=== PATIENT | male | born 1960 | race Caucasian/White ===

== ENCOUNTER 2025-04-20 11:30 | Day surgery (SDC) | payer OTHER ==
[2025-04-14 10:24] VITALS: BP 125/83
[~2025-04-20] VITALS: Ht 165.1 cm; Wt 62.6 kg
[2025-04-20] MEDS ORDERED: CIPROFLOXACIN IN 5 % DEXTROSE 400 MG/200 ML PIGGYBAG IV ONE ×2 (12:51→16:30)
[2025-04-20] MEDS ORDERED: BUPIVACAINE HCL/MPF 0.5% 30ML VIAL ONE (14:31)
[2025-04-20] MEDS ORDERED: MIRALAX17 GM PO (18:02)
[2025-04-20] MEDS ORDERED: KETO10TA2 PO (18:02)
[2025-04-20] MEDS ORDERED: TYLENOL ARTHRI650 MG PO (18:02)
[2025-04-20] MEDS ORDERED: TRAMADOL HCL50 MG PO (18:02)
== END 2025-04-20 21:50 | disposition home or self-care (01) ==
LOC: CIR.AMB 11:30
PROVIDERS: ATTEND Surgery
DX: K40.90 Unilateral inguinal hernia, without obstruction or gangrene, not specified as recurrent (principal); K42.0 Umbilical hernia with obstruction, without gangrene; Z88.0 Allergy status to penicillin
CPT/HCPCS: 49650; 49592; C1781